=== PATIENT | male | born 1945 | race Caucasian/White ===

== ENCOUNTER 2017-01-07 08:27 | Outpatient (CLI) | payer OTHER ==
[2013-04-01 09:26] VITALS: BP 112/70
[2017-01-07 09:25] LABS: eGFR (African) > 60; eGFR (Non-African) 58
== END 2017-01-07 08:30 ==
LOC: LAB 08:27
PROVIDERS: ATTEND Physician Assistant
DX: I10 Essential (primary) hypertension (principal)
CPT/HCPCS: 36415; 80053

== ENCOUNTER 2018-01-13 10:07 | Outpatient (CLI) | payer OTHER ==
[2013-04-01 09:26] VITALS: BP 112/70
[2018-01-13 12:00] LABS: eGFR (Non-African) > 60
[2018-01-13 16:21] LABS: BASO % 0.7 % (0.0-1.5); EOS % 2.8 % (0.0-6.8); LYMPH ABS # 1.04 thou/uL (0.60-4.00); MCH. 30.4 pg (28.0-34.0); MCV 87.2 fL (80.0-100.0); MONOCYTE % 7.4 % (0.0-11.0); MONOCYTE ABS # 0.34 thou/uL (0.00-0.90); PLATELET COUNT 232 thou/uL (130-400)
== END 2018-01-13 10:10 ==
LOC: LAB 10:07
PROVIDERS: ATTEND Family Medicine
DX: I10 Essential (primary) hypertension (principal)
CPT/HCPCS: 80053; 80061; 85025